=== PATIENT | female | born 1950 | race Caucasian/White ===

== ENCOUNTER 2018-06-07 16:13 | Emergency (ER) | payer OTHER ==
[2018-06-07 16:22] VITALS: BP 149/86; PULSE 73; TEMP 98.4; BMI 19.2
[2018-06-07] MEDS ORDERED: ONDANSETRON *ODT* 4 MG TABLET SL ONE (16:53)
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
[2018-06-07] MEDS ORDERED: ONDANSETRON *ODT* 4 MG TABLET ONE (17:04)
== END 2018-06-07 17:07 | disposition home or self-care (01) ==
LOC: FER 16:13
DX: Z13.9 Encounter for screening, unspecified (principal); I10 Essential (primary) hypertension; F17.210 Nicotine dependence, cigarettes, uncomplicated; Z86.73 Personal history of transient ischemic attack (TIA), and cerebral infarction without residual deficits; E06.3 Autoimmune thyroiditis; E78.00 Pure hypercholesterolemia, unspecified
CPT/HCPCS: 99281-25; Q0162

== ENCOUNTER 2021-09-30 14:33 | Emergency (ER) | payer OTHER ==
[2021-09-30 14:57] VITALS: TEMP 98.2; BMI 20.6
[2021-09-30] MEDS ORDERED: DEXAMETHASONE SOD PHOSPHATE 4 MG/1 ML VIAL IVPUSH ONE (16:21)
[2021-09-30] MEDS ORDERED: DEXAMETHASONE SOD PHOSPHATE 10 MG/1 ML VIAL ONE (16:58)
[2021-09-30] MEDS ORDERED: LISINOPRIL 10 MG TABLET PO ONE (17:09)
[2021-09-30] MEDS ORDERED: LISINOPRIL 5 MG TABLET ONE (17:52)
[2021-09-30 18:03] LABS: BASO % 0.4 % (0-2.0); HEMOGLOBIN 12.7 GM/dL (10.7-15.3); LYMPH % 7.9 % (8-40); MCH 32.1 pg (25.7-33.7); MCHC 33.5 g/dl (32.0-36.0); MEAN CELL VOLUME 95.6 fl (80-96); MEAN PLT VOLUME 8.6 fl (7.5-11.1); MONO % 13.4 % (3.8-10.2); NEUT % 78.3 % (42.8-82.8); PLATELET COUNT 238 10^3/uL (134-434); RBC 3.97 M/mm3 (3.60-5.2); RDW 13.5 % (11.6-15.6); WHITE BLOOD COUNT 10.3 K/mm3 (4.0-10.0)
[2021-09-30] MEDS ORDERED: AZITHROMYCIN 500 MG TABLET PO ONE (18:03)
[2021-09-30] MEDS ORDERED: CEFTRIAXONE 1,000 MG in DEXTROSE 5%-WATER - 50 ML IVPB ONE (18:03)
[2021-09-30 18:11] LABS: VENOUS O2 SATURATION 95.4 % (70-80); VENOUS PCO2 44.8 mmHg (38-52); VENOUS PH 7.401 (7.310-7.410)
[2021-09-30 18:12] LABS: INR 0.99 (0.83-1.09); PROTHROMBIN TIME (PATIENT) 11.6 SEC (9.7-13.0)
[2021-09-30 18:34] LABS: ALBUMIN 2.3 g/dl (3.4-5.0)
[2021-09-30 18:37] LABS: CREATININE 0.8 mg/dL (0.55-1.3)
[2021-09-30 18:38] LABS: BILIRUBIN,TOTAL 0.3 mg/dL (0.2-1); TOT PROT 5.9 g/dl (6.4-8.2)
[2021-09-30] MEDS ORDERED: CEFTRIAXONE 1 GM/50 ML BAG ONE (18:49)
[2021-09-30] MEDS ORDERED: AZITHROMYCIN 250 MG TABLET ONE (18:49)
[2021-09-30 19:00] VITALS: BP 143/75; PULSE 83
== END 2021-09-30 19:06 | disposition left against medical advice (07) ==
LOC: JER 14:33
PROC: 3E03329 Introduction of Other Anti-infective into Peripheral Vein, Percutaneous Approach (ICD-10-PCS; principal; 2021-09-30)
PROC: 3E033GC Introduction of Other Therapeutic Substance into Peripheral Vein, Percutaneous Approach (ICD-10-PCS; 2021-09-30)
DX: R09.02 Hypoxemia (principal); J12.82 Pneumonia due to coronavirus disease 2019
CPT/HCPCS: 36415; 71045-TC-FY; 80053; 82550; 82553; 82803; 84484; 85025; 85610; 85730; 87804; 93005; 93010; 99285-25; C9803; U0003; U0005

== ENCOUNTER 2021-10-02 11:29 | Inpatient (IN) | payer OTHER ==
[2021-10-02] MEDS ORDERED: SODIUM CHLORIDE 0.9% 500 ML INFUS.BAG IV ONE (12:40)
[2021-10-02] MEDS ORDERED: DEXAMETHASONE SOD PHOSPHATE 10 MG/1 ML VIAL IVPUSH ONE (12:40)
[2021-10-02] MEDS ORDERED: ACETAMINOPHEN 1000 MG/100 ML VIAL IVPB ONE (12:46)
[2021-10-02] MEDS ORDERED: CEFTRIAXONE 1 GM in DEXTROSE 5%-WATER - 50 ML IVPB ONE (12:50)
[2021-10-02] MEDS ORDERED: AZITHROMYCIN IVPB 500 MG in DEXTROSE 5%-WATER - 250 ML IVPB ONE (12:50)
[2021-10-02] MEDS ORDERED: DEXAMETHASONE SOD PHOSPHATE 10 MG/1 ML VIAL ONE (13:03)
[2021-10-02] MEDS ORDERED: ACETAMINOPHEN INJECTION 100 ML IVPB ONE (13:03)
[2021-10-02] MEDS ORDERED: AZITHROMYCIN IVPB 500 MG/250 ML BAG IVPB ONE (13:03)
[2021-10-02] MEDS ORDERED: CEFTRIAXONE 1 GM/50 ML BAG ONE (13:03)
[2021-10-02 13:30] LABS: BASO % 0.4 % (0-2.0); HEMATOCRIT 40.7 % (32.4-45.2); HEMOGLOBIN 13.5 GM/dL (10.7-15.3); LYMPH % 5.5 % (8-40); MCH 31.4 pg (25.7-33.7); MCHC 33.1 g/dl (32.0-36.0); MONO % 11.7 % (3.8-10.2); NEUT % 82.4 % (42.8-82.8); PLATELET COUNT 390 10^3/uL (134-434); RBC 4.29 M/mm3 (3.60-5.2); RDW 13.4 % (11.6-15.6); WHITE BLOOD COUNT 13.7 K/mm3 (4.0-10.0)
[2021-10-02 13:31] LABS: VENOUS BASE EXCESS 5.8 mmol/L (-2-2); VENOUS PCO2 53.7 mmHg (38-52); VENOUS PH 7.396 (7.310-7.410)
[2021-10-02 13:38] LABS: INR 1.03 (0.83-1.09); PROTHROMBIN TIME (PATIENT) 12.1 SEC (9.7-13.0)
[2021-10-02 13:41] LABS: ACTIVATED PTT 25.4 SECONDS (25.2-36.5)
[2021-10-02 13:54] LABS: BLOOD UREA NITROGEN 21.8 mg/dL (7-18)
[2021-10-02 13:55] LABS: CALCIUM 8.9 mg/dL (8.5-10.1)
[2021-10-02 13:56] LABS: ALBUMIN 2.5 g/dl (3.4-5.0)
[2021-10-02 13:58] LABS: BILIRUBIN,DIRECT 0.1 mg/dL (0.0-0.2)
[2021-10-02 13:59] LABS: BILIRUBIN,TOTAL 0.4 mg/dL (0.2-1)
[2021-10-02 14:02] LABS: TOT PROT 6.4 g/dl (6.4-8.2)
[2021-10-02 15:49] LABS: EPI CELLS 17 /uL (0-25.1); HYALINE CASTS 7 /uL (0-3.1); URINE APPEARANCE CLEAR; URINE BACTERIA 7 /uL (0-1359); URINE BILIRUBIN NEGATIVE (NEGATIVE); URINE COLOR YELLOW; URINE GLUCOSE (UA) NEGATIVE (NEGATIVE); URINE KETONE NEGATIVE (NEGATIVE); URINE LEUK ESTERASE NEGATIVE (NEGATIVE); URINE NITRITE NEGATIVE (NEGATIVE); URINE PROTEIN 2+ (NEGATIVE); URINE RBC 106 /uL (0-23.9); URINE UROBILINOGEN 0.2 mg/dL (0.2-1.0); URINE WBC 15 /uL (0-25.8)
[2021-10-02] MEDS: BUDESONIDE/FORMETEROL FUMARATE 80/4.5 mcg INHALER IH SCH (22:25)
[2021-10-03] MEDS ORDERED: DEXTROSE 5%-WATER - 50 ML IVPB ONE (08:50)
[2021-10-03] MEDS ORDERED: cefTRIAXone SODIUM 1 GM VIAL ONE (08:50)
[2021-10-03] MEDS: ALBUTEROL SO4 HFA INHALER IH PRN (09:01)
[2021-10-03] MEDS: CEFTRIAXONE 1 GM in DEXTROSE 5%-WATER - 50 ML IVPB SCH (09:01)
[2021-10-03] MEDS: AZITHROMYCIN IVPB 500 MG/250 ML BAG IVPB SCH (09:01)
[2021-10-03] MEDS: LISINOPRIL 20 MG TABLET PO SCH (09:01)
[2021-10-03] MEDS: BUDESONIDE/FORMETEROL FUMARATE 80/4.5 mcg INHALER IH SCH ×2 (09:02→21:56)
[2021-10-03] MEDS: guaiFENesin 200 MG/10 ML 10 ML UNIT-DOSE CUPS PO PRN (09:02)
[2021-10-03] MEDS: amLODIPine BESYLATE 5 MG TABLET (FP) PO SCH (09:02)
[2021-10-03] MEDS: DEXAMETHASONE SOD PHOSPHATE 10 MG/1 ML VIAL IVPUSH SCH (09:02)
[2021-10-03] MEDS: FAMOTIDINE 20 MG TABLET PO SCH (09:02)
[2021-10-03] MEDS: ENOXAPARIN NA (PORCINE) 40 MG/0.4 ML DISP.SYRIN SQ SCH (09:02)
[2021-10-03] MEDS: CHOLECALCIFEROL (VIT D3) 1,000 UNIT (25 MCG) TABLET PO ONE (11:31)
[2021-10-03] MEDS: ZINC SULFATE 220 MG CAPSULE (FP) PO SCH (11:31)
[2021-10-03] MEDS: ASCORBIC ACID 500 MG TABLET (FP) PO SCH ×2 (11:31→21:57)
[2021-10-03] MEDS: ALPRAZolam 1 MG TABLET PO PRN (15:04)
[2021-10-03 17:38] LABS: HEMATOCRIT 39.3 % (32.4-45.2); MCH 31.7 pg (25.7-33.7); MCHC 33.1 g/dl (32.0-36.0); MEAN CELL VOLUME 95.6 fl (80-96); PLATELET COUNT 378 10^3/uL (134-434); RBC 4.11 M/mm3 (3.60-5.2); RDW 13.7 % (11.6-15.6); WHITE BLOOD COUNT 12.8 K/mm3 (4.0-10.0)
[2021-10-03 17:58] LABS: CALCIUM 8.2 mg/dL (8.5-10.1)
[2021-10-03 17:59] LABS: BLOOD UREA NITROGEN 19.3 mg/dL (7-18)
[2021-10-03 18:02] LABS: CREATININE 0.8 mg/dL (0.55-1.3)
[2021-10-03 18:03] LABS: BILIRUBIN,TOTAL 0.2 mg/dL (0.2-1); TOT PROT 5.5 g/dl (6.4-8.2)
[2021-10-03 19:28] LABS: EPI CELLS 6 /uL (0-25.1); HYALINE CASTS 1 /uL (0-3.1); URINE APPEARANCE CLEAR; URINE BACTERIA 6 /uL (0-1359); URINE BILIRUBIN NEGATIVE (NEGATIVE); URINE COLOR YELLOW; URINE GLUCOSE (UA) NEGATIVE (NEGATIVE); URINE KETONE NEGATIVE (NEGATIVE); URINE LEUK ESTERASE NEGATIVE (NEGATIVE); URINE NITRITE NEGATIVE (NEGATIVE); URINE PROTEIN 1+ (NEGATIVE); URINE RBC 35 /uL (0-23.9); URINE UROBILINOGEN 0.2 mg/dL (0.2-1.0); URINE WBC 7 /uL (0-25.8)
[2021-10-03] MEDS: ACETAMINOPHEN 325 MG TABLET (FP) PO PRN (21:56)
[2021-10-04] MEDS: ACETAMINOPHEN 325 MG TABLET (FP) PO PRN ×2 (06:30→20:41)
[2021-10-04 09:34] LABS: HEMATOCRIT 39.8 % (32.4-45.2); HEMOGLOBIN 13.4 GM/dL (10.7-15.3); MCH 32.4 pg (25.7-33.7); MCHC 33.6 g/dl (32.0-36.0); MEAN CELL VOLUME 96.5 fl (80-96); MEAN PLT VOLUME 8.5 fl (7.5-11.1); PLATELET COUNT 391 10^3/uL (134-434); RBC 4.13 M/mm3 (3.60-5.2); RDW 13.3 % (11.6-15.6); WHITE BLOOD COUNT 14.6 K/mm3 (4.0-10.0)
[2021-10-04] MEDS ORDERED: cefTRIAXone SODIUM 1 GM VIAL ONE (09:52)
[2021-10-04] MEDS ORDERED: DEXTROSE 5%-WATER - 50 ML IVPB ONE (09:52)
[2021-10-04] MEDS: CEFTRIAXONE 1 GM in DEXTROSE 5%-WATER - 50 ML IVPB SCH (09:53)
[2021-10-04] MEDS: ENOXAPARIN NA (PORCINE) 40 MG/0.4 ML DISP.SYRIN SQ SCH (09:54)
[2021-10-04] MEDS: amLODIPine BESYLATE 5 MG TABLET (FP) PO SCH (09:55)
[2021-10-04] MEDS: DEXAMETHASONE SOD PHOSPHATE 10 MG/1 ML VIAL IVPUSH SCH (09:56)
[2021-10-04] MEDS: LISINOPRIL 20 MG TABLET PO SCH (09:56)
[2021-10-04] MEDS: CHOLECALCIFEROL (VIT D3) 1,000 UNIT (25 MCG) TABLET PO SCH (09:56)
[2021-10-04] MEDS: ASCORBIC ACID 500 MG TABLET (FP) PO SCH ×2 (09:56→21:52)
[2021-10-04] MEDS: ZINC SULFATE 220 MG CAPSULE (FP) PO SCH (09:56)
[2021-10-04] MEDS: BUDESONIDE/FORMETEROL FUMARATE 80/4.5 mcg INHALER IH SCH ×2 (09:56→21:52)
[2021-10-04] MEDS: FAMOTIDINE 20 MG TABLET PO SCH (09:56)
[2021-10-04 10:20] LABS: ALBUMIN 1.8 g/dl (3.4-5.0)
[2021-10-04 10:21] LABS: BLOOD UREA NITROGEN 20.9 mg/dL (7-18)
[2021-10-04 10:22] LABS: CALCIUM 8.1 mg/dL (8.5-10.1)
[2021-10-04 10:23] LABS: CREATININE 0.8 mg/dL (0.55-1.3); PHOSPHOROUS 2.9 mg/dL (2.5-4.9)
[2021-10-04 10:24] LABS: BILIRUBIN,TOTAL 0.4 mg/dL (0.2-1); TOT PROT 5.2 g/dl (6.4-8.2)
[2021-10-04] MEDS: AZITHROMYCIN IVPB 500 MG/250 ML BAG IVPB SCH (10:47)
[2021-10-04] MEDS: ALPRAZolam 1 MG TABLET PO PRN (20:41)
[2021-10-05] MEDS ORDERED: amLODIPine BESYLATE 5 MG TABLET (FP) PO ONE (06:04)
[2021-10-05 10:22] LABS: RBC 4.34 M/mm3 (3.60-5.2); WHITE BLOOD COUNT 17.8 K/mm3 (4.0-10.0)
[2021-10-05 10:23] LABS: MCH 32.2 pg (25.7-33.7); MCHC 33.2 g/dl (32.0-36.0); MEAN CELL VOLUME 96.9 fl (80-96); MEAN PLT VOLUME 8.5 fl (7.5-11.1); PLATELET COUNT 311 10^3/uL (134-434); RDW 13.6 % (11.6-15.6)
[2021-10-05 10:43] LABS: ALBUMIN 1.8 g/dl (3.4-5.0); CALCIUM 8.2 mg/dL (8.5-10.1)
[2021-10-05 10:44] LABS: MAGNESIUM 2.1 mg/dL (1.8-2.4)
[2021-10-05 10:46] LABS: CREATININE 0.7 mg/dL (0.55-1.3); PHOSPHOROUS 2.5 mg/dL (2.5-4.9)
[2021-10-05 10:48] LABS: BILIRUBIN,TOTAL 0.3 mg/dL (0.2-1); TOT PROT 5.4 g/dl (6.4-8.2)
[2021-10-05] MEDS ORDERED: cefTRIAXone SODIUM 1 GM VIAL ONE (10:54)
[2021-10-05] MEDS ORDERED: DEXTROSE 5%-WATER - 50 ML IVPB ONE (10:55)
[2021-10-05] MEDS: FAMOTIDINE 20 MG TABLET PO SCH (10:58)
[2021-10-05] MEDS: ASCORBIC ACID 500 MG TABLET (FP) PO SCH ×2 (10:58→22:40)
[2021-10-05] MEDS: ENOXAPARIN NA (PORCINE) 40 MG/0.4 ML DISP.SYRIN SQ SCH (10:58)
[2021-10-05] MEDS: LISINOPRIL 20 MG TABLET PO SCH (10:58)
[2021-10-05] MEDS: CHOLECALCIFEROL (VIT D3) 1,000 UNIT (25 MCG) TABLET PO SCH (10:58)
[2021-10-05] MEDS: CEFTRIAXONE 1 GM in DEXTROSE 5%-WATER - 50 ML IVPB SCH (10:58)
[2021-10-05] MEDS: ZINC SULFATE 220 MG CAPSULE (FP) PO SCH (10:58)
[2021-10-05] MEDS: DEXAMETHASONE SOD PHOSPHATE 10 MG/1 ML VIAL IVPUSH SCH (10:58)
[2021-10-05] MEDS: amLODIPine BESYLATE 5 MG TABLET (FP) PO SCH (10:58)
[2021-10-05] MEDS: BUDESONIDE/FORMETEROL FUMARATE 80/4.5 mcg INHALER IH SCH ×2 (10:59→22:40)
[2021-10-05] MEDS: AZITHROMYCIN IVPB 500 MG/250 ML BAG IVPB SCH (11:40)
[2021-10-05] MEDS: ACETAMINOPHEN 325 MG TABLET (FP) PO PRN (11:47)
[2021-10-06 09:13] LABS: HEMATOCRIT 36.5 % (32.4-45.2); HEMOGLOBIN 12.3 GM/dL (10.7-15.3); MCH 31.9 pg (25.7-33.7); MCHC 33.8 g/dl (32.0-36.0); MEAN CELL VOLUME 94.2 fl (80-96); MEAN PLT VOLUME 8.1 fl (7.5-11.1); PLATELET COUNT 354 10^3/uL (134-434); RBC 3.87 M/mm3 (3.60-5.2); RDW 13.3 % (11.6-15.6); WHITE BLOOD COUNT 17.4 K/mm3 (4.0-10.0)
[2021-10-06 09:24] LABS: INR 0.92 (0.83-1.09); PROTHROMBIN TIME (PATIENT) 10.8 SEC (9.7-13.0)
[2021-10-06 09:32] LABS: BLOOD UREA NITROGEN 24.3 mg/dL (7-18); CALCIUM 8.3 mg/dL (8.5-10.1)
[2021-10-06 09:33] LABS: ALBUMIN 1.5 g/dl (3.4-5.0); MAGNESIUM 2.2 mg/dL (1.8-2.4)
[2021-10-06 09:36] LABS: CREATININE 0.6 mg/dL (0.55-1.3)
[2021-10-06 09:37] LABS: BILIRUBIN,TOTAL 0.4 mg/dL (0.2-1); TOT PROT 4.8 g/dl (6.4-8.2)
[2021-10-06] MEDS ORDERED: cefTRIAXone SODIUM 1 GM VIAL ONE (09:37)
[2021-10-06] MEDS ORDERED: DEXTROSE 5%-WATER - 50 ML IVPB ONE (09:38)
[2021-10-06] MEDS: FAMOTIDINE 20 MG TABLET PO SCH (10:23)
[2021-10-06] MEDS: DEXAMETHASONE SOD PHOSPHATE 10 MG/1 ML VIAL IVPUSH SCH (10:23)
[2021-10-06] MEDS: LISINOPRIL 20 MG TABLET PO SCH (10:23)
[2021-10-06] MEDS: ZINC SULFATE 220 MG CAPSULE (FP) PO SCH (10:23)
[2021-10-06] MEDS: ASCORBIC ACID 500 MG TABLET (FP) PO SCH ×2 (10:23→21:51)
[2021-10-06] MEDS: CHOLECALCIFEROL (VIT D3) 1,000 UNIT (25 MCG) TABLET PO SCH (10:23)
[2021-10-06] MEDS: amLODIPine BESYLATE 5 MG TABLET (FP) PO SCH (10:24)
[2021-10-06] MEDS: CEFTRIAXONE 1 GM in DEXTROSE 5%-WATER - 50 ML IVPB SCH (10:24)
[2021-10-06] MEDS: ENOXAPARIN NA (PORCINE) 40 MG/0.4 ML DISP.SYRIN SQ SCH (10:24)
[2021-10-06] MEDS: BUDESONIDE/FORMETEROL FUMARATE 80/4.5 mcg INHALER IH SCH ×2 (10:49→21:51)
[2021-10-07] MEDS ORDERED: PT OWN MED DRAWER 7, Y5N ONE ×2 (10:18→19:16)
[2021-10-07] MEDS ORDERED: cefTRIAXone SODIUM 1 GM VIAL ONE (10:19)
[2021-10-07] MEDS ORDERED: DEXTROSE 5%-WATER - 50 ML IVPB ONE (10:19)
[2021-10-07] MEDS: CEFTRIAXONE 1 GM in DEXTROSE 5%-WATER - 50 ML IVPB SCH (10:21)
[2021-10-07] MEDS: ZINC SULFATE 220 MG CAPSULE (FP) PO SCH (10:22)
[2021-10-07] MEDS: FAMOTIDINE 20 MG TABLET PO SCH (10:22)
[2021-10-07] MEDS: ENOXAPARIN NA (PORCINE) 40 MG/0.4 ML DISP.SYRIN SQ SCH (10:22)
[2021-10-07] MEDS: ASCORBIC ACID 500 MG TABLET (FP) PO SCH ×2 (10:22→21:41)
[2021-10-07] MEDS: DEXAMETHASONE SOD PHOSPHATE 10 MG/1 ML VIAL IVPUSH SCH (10:22)
[2021-10-07] MEDS: LISINOPRIL 20 MG TABLET PO SCH (10:22)
[2021-10-07] MEDS: amLODIPine BESYLATE 5 MG TABLET (FP) PO SCH (10:22)
[2021-10-07] MEDS: CHOLECALCIFEROL (VIT D3) 1,000 UNIT (25 MCG) TABLET PO SCH (10:22)
[2021-10-07] MEDS: BUDESONIDE/FORMETEROL FUMARATE 80/4.5 mcg INHALER IH SCH ×2 (10:23→21:41)
[2021-10-07 10:59] LABS: HEMATOCRIT 35.8 % (32.4-45.2); MCHC 33.5 g/dl (32.0-36.0); MEAN CELL VOLUME 95.7 fl (80-96); MEAN PLT VOLUME 8.5 fl (7.5-11.1); PLATELET COUNT 365 10^3/uL (134-434); RBC 3.74 M/mm3 (3.60-5.2); RDW 13.3 % (11.6-15.6); WHITE BLOOD COUNT 15.1 K/mm3 (4.0-10.0)
[2021-10-07 11:35] LABS: CALCIUM 8.2 mg/dL (8.5-10.1)
[2021-10-07 11:36] LABS: BLOOD UREA NITROGEN 23.5 mg/dL (7-18); MAGNESIUM 2.4 mg/dL (1.8-2.4)
[2021-10-07 11:39] LABS: CREATININE 0.6 mg/dL (0.55-1.3); PHOSPHOROUS 3.9 mg/dL (2.5-4.9)
[2021-10-07] MEDS ORDERED: TOCILIZUMAB (ACTEMRA) 200 MG/10 ML VIAL IVPB ONE (15:54)
[2021-10-07] MEDS ORDERED: TOCILIZUMAB IVPB ONE (16:15)
[2021-10-07] MEDS ORDERED: SODIUM CHLORIDE IVPB ONE (16:15)
[2021-10-08 09:17] LABS: HEMOGLOBIN 14.3 GM/dL (10.7-15.3); MCH 32.5 pg (25.7-33.7); MEAN CELL VOLUME 95.7 fl (80-96); MEAN PLT VOLUME 8.3 fl (7.5-11.1); PLATELET COUNT 505 10^3/uL (134-434); RBC 4.39 M/mm3 (3.60-5.2); RDW 13.1 % (11.6-15.6)
[2021-10-08] MEDS ORDERED: DEXTROSE 5%-WATER - 50 ML IVPB ONE (10:08)
[2021-10-08] MEDS ORDERED: cefTRIAXone SODIUM 1 GM VIAL ONE (10:08)
[2021-10-08 10:09] LABS: CALCIUM 9.1 mg/dL (8.5-10.1)
[2021-10-08 10:11] LABS: MAGNESIUM 2.4 mg/dL (1.8-2.4)
[2021-10-08 10:12] LABS: CREATININE 0.7 mg/dL (0.55-1.3); PHOSPHOROUS 3.3 mg/dL (2.5-4.9)
[2021-10-08] MEDS: ALPRAZolam 1 MG TABLET PO PRN (10:16)
[2021-10-08] MEDS: FAMOTIDINE 20 MG TABLET PO SCH (10:17)
[2021-10-08] MEDS: ASCORBIC ACID 500 MG TABLET (FP) PO SCH ×2 (10:17→21:34)
[2021-10-08] MEDS: LISINOPRIL 20 MG TABLET PO SCH (10:17)
[2021-10-08] MEDS: DEXAMETHASONE SOD PHOSPHATE 10 MG/1 ML VIAL IVPUSH SCH (10:17)
[2021-10-08] MEDS: ENOXAPARIN NA (PORCINE) 40 MG/0.4 ML DISP.SYRIN SQ SCH (10:17)
[2021-10-08] MEDS: amLODIPine BESYLATE 5 MG TABLET (FP) PO SCH (10:17)
[2021-10-08] MEDS: ZINC SULFATE 220 MG CAPSULE (FP) PO SCH (10:17)
[2021-10-08] MEDS: SODIUM CHLORIDE NASAL SPRAY 44 ML BOTTLE NS PRN (10:19)
[2021-10-08] MEDS: CEFTRIAXONE 1 GM in DEXTROSE 5%-WATER - 50 ML IVPB SCH (10:19)
[2021-10-08] MEDS: BUDESONIDE/FORMETEROL FUMARATE 80/4.5 mcg INHALER IH SCH ×2 (10:19→21:37)
[2021-10-08] MEDS: CHOLECALCIFEROL (VIT D3) 1,000 UNIT (25 MCG) TABLET PO SCH (10:19)
[2021-10-08 10:20] LABS: BLOOD UREA NITROGEN 20.3 mg/dL (7-18)
[2021-10-08] MEDS: ALBUTEROL SO4 HFA INHALER IH PRN (10:20)
[2021-10-08 14:09] VITALS: BMI 19.9
[2021-10-08] MEDS: ALBUTEROL SO4 HFA INHALER IH SCH ×2 (16:45→21:35)
[2021-10-08] MEDS: ALPRAZolam 0.25 MG TABLET PO PRN (21:34)
[2021-10-09 08:29] LABS: HEMATOCRIT 37.5 % (32.4-45.2); HEMOGLOBIN 12.4 GM/dL (10.7-15.3); MCH 31.8 pg (25.7-33.7); MCHC 33.2 g/dl (32.0-36.0); MEAN CELL VOLUME 95.9 fl (80-96); PLATELET COUNT 408 10^3/uL (134-434); RBC 3.91 M/mm3 (3.60-5.2); RDW 13.2 % (11.6-15.6); WHITE BLOOD COUNT 15.5 K/mm3 (4.0-10.0)
[2021-10-09 08:54] LABS: BLOOD UREA NITROGEN 23.9 mg/dL (7-18); CALCIUM 8.5 mg/dL (8.5-10.1); MAGNESIUM 2.5 mg/dL (1.8-2.4)
[2021-10-09 08:56] LABS: CREATININE 0.6 mg/dL (0.55-1.3); PHOSPHOROUS 3.3 mg/dL (2.5-4.9)
[2021-10-09] MEDS ORDERED: PT OWN MED DRAWER 7, Y5N ONE (10:06)
[2021-10-09] MEDS: ALBUTEROL SO4 HFA INHALER IH SCH ×4 (10:12→21:00)
[2021-10-09] MEDS: FAMOTIDINE 20 MG TABLET PO SCH (10:12)
[2021-10-09] MEDS: DEXAMETHASONE SOD PHOSPHATE 10 MG/1 ML VIAL IVPUSH SCH (10:12)
[2021-10-09] MEDS: ASCORBIC ACID 500 MG TABLET (FP) PO SCH ×2 (10:12→21:39)
[2021-10-09] MEDS: ENOXAPARIN NA (PORCINE) 40 MG/0.4 ML DISP.SYRIN SQ SCH (10:12)
[2021-10-09] MEDS: ZINC SULFATE 220 MG CAPSULE (FP) PO SCH (10:12)
[2021-10-09] MEDS: CHOLECALCIFEROL (VIT D3) 1,000 UNIT (25 MCG) TABLET PO SCH (10:12)
[2021-10-09] MEDS: LISINOPRIL 20 MG TABLET PO SCH (10:12)
[2021-10-09] MEDS: amLODIPine BESYLATE 5 MG TABLET (FP) PO SCH (10:12)
[2021-10-09] MEDS: BUDESONIDE/FORMETEROL FUMARATE 80/4.5 mcg INHALER IH SCH ×2 (10:13→21:39)
[2021-10-10 07:49] LABS: HEMATOCRIT 34.3 % (32.4-45.2); HEMOGLOBIN 11.6 GM/dL (10.7-15.3); MCH 32.3 pg (25.7-33.7); MCHC 33.9 g/dl (32.0-36.0); MEAN CELL VOLUME 95.5 fl (80-96); PLATELET COUNT 417 10^3/uL (134-434); RBC 3.59 M/mm3 (3.60-5.2); RDW 13.2 % (11.6-15.6); WHITE BLOOD COUNT 14.6 K/mm3 (4.0-10.0)
[2021-10-10 08:10] LABS: CALCIUM 8.5 mg/dL (8.5-10.1)
[2021-10-10 08:11] LABS: MAGNESIUM 2.3 mg/dL (1.8-2.4)
[2021-10-10 08:14] LABS: CREATININE 0.5 mg/dL (0.55-1.3)
[2021-10-10] MEDS: ALBUTEROL SO4 HFA INHALER IH SCH ×4 (08:58→21:00)
[2021-10-10] MEDS ORDERED: PT OWN MED DRAWER 7, Y5N ONE (09:36)
[2021-10-10] MEDS: FAMOTIDINE 20 MG TABLET PO SCH (09:45)
[2021-10-10] MEDS: CHOLECALCIFEROL (VIT D3) 1,000 UNIT (25 MCG) TABLET PO SCH (09:45)
[2021-10-10] MEDS: LISINOPRIL 20 MG TABLET PO SCH (09:45)
[2021-10-10] MEDS: ZINC SULFATE 220 MG CAPSULE (FP) PO SCH (09:45)
[2021-10-10] MEDS: SODIUM CHLORIDE NASAL SPRAY 44 ML BOTTLE NS PRN (09:45)
[2021-10-10] MEDS: amLODIPine BESYLATE 5 MG TABLET (FP) PO SCH (09:45)
[2021-10-10] MEDS: DEXAMETHASONE SOD PHOSPHATE 10 MG/1 ML VIAL IVPUSH SCH (09:45)
[2021-10-10] MEDS: BUDESONIDE/FORMETEROL FUMARATE 80/4.5 mcg INHALER IH SCH ×2 (09:45→21:59)
[2021-10-10] MEDS: ASCORBIC ACID 500 MG TABLET (FP) PO SCH ×2 (09:45→21:58)
[2021-10-10] MEDS: ENOXAPARIN NA (PORCINE) 40 MG/0.4 ML DISP.SYRIN SQ SCH (09:45)
[2021-10-11] MEDS: ALBUTEROL SO4 HFA INHALER IH SCH ×4 (08:29→20:07)
[2021-10-11 08:31] LABS: HEMATOCRIT 33.9 % (32.4-45.2); HEMOGLOBIN 11.2 GM/dL (10.7-15.3); MCH 31.4 pg (25.7-33.7); MEAN CELL VOLUME 95.2 fl (80-96); MEAN PLT VOLUME 7.5 fl (7.5-11.1); PLATELET COUNT 403 10^3/uL (134-434); RBC 3.56 M/mm3 (3.60-5.2); RDW 13.1 % (11.6-15.6); WHITE BLOOD COUNT 13.9 K/mm3 (4.0-10.0)
[2021-10-11 08:44] LABS: BLOOD UREA NITROGEN 20.3 mg/dL (7-18); CALCIUM 8.3 mg/dL (8.5-10.1); MAGNESIUM 2.2 mg/dL (1.8-2.4)
[2021-10-11 08:47] LABS: CREATININE 0.6 mg/dL (0.55-1.3); PHOSPHOROUS 3.3 mg/dL (2.5-4.9)
[2021-10-11] MEDS ORDERED: PT OWN MED DRAWER 7, Y5N ONE (10:36)
[2021-10-11] MEDS: DEXAMETHASONE SOD PHOSPHATE 10 MG/1 ML VIAL IVPUSH SCH (11:38)
[2021-10-11] MEDS: ASCORBIC ACID 500 MG TABLET (FP) PO SCH ×2 (11:38→21:03)
[2021-10-11] MEDS: ENOXAPARIN NA (PORCINE) 40 MG/0.4 ML DISP.SYRIN SQ SCH (11:38)
[2021-10-11] MEDS: CHOLECALCIFEROL (VIT D3) 1,000 UNIT (25 MCG) TABLET PO SCH (11:38)
[2021-10-11] MEDS: ZINC SULFATE 220 MG CAPSULE (FP) PO SCH (11:39)
[2021-10-11] MEDS: amLODIPine BESYLATE 5 MG TABLET (FP) PO SCH (11:39)
[2021-10-11] MEDS: BUDESONIDE/FORMETEROL FUMARATE 80/4.5 mcg INHALER IH SCH ×2 (11:39→21:03)
[2021-10-11] MEDS: LISINOPRIL 20 MG TABLET PO SCH (11:39)
[2021-10-11] MEDS: FAMOTIDINE 20 MG TABLET PO SCH (11:39)
[2021-10-11] MEDS: ALPRAZolam 0.25 MG TABLET PO PRN (15:49)
[2021-10-12] MEDS: FAMOTIDINE 20 MG TABLET PO SCH (09:26)
[2021-10-12] MEDS: amLODIPine BESYLATE 5 MG TABLET (FP) PO SCH (09:26)
[2021-10-12] MEDS: ALBUTEROL SO4 HFA INHALER IH SCH ×4 (09:26→21:20)
[2021-10-12] MEDS: DEXAMETHASONE SOD PHOSPHATE 10 MG/1 ML VIAL IVPUSH SCH (09:27)
[2021-10-12] MEDS: ENOXAPARIN NA (PORCINE) 40 MG/0.4 ML DISP.SYRIN SQ SCH (09:27)
[2021-10-12] MEDS: CHOLECALCIFEROL (VIT D3) 1,000 UNIT (25 MCG) TABLET PO SCH (09:27)
[2021-10-12] MEDS: ASCORBIC ACID 500 MG TABLET (FP) PO SCH ×2 (09:27→21:18)
[2021-10-12] MEDS: BUDESONIDE/FORMETEROL FUMARATE 80/4.5 mcg INHALER IH SCH ×2 (09:27→21:22)
[2021-10-12] MEDS: LISINOPRIL 20 MG TABLET PO SCH (09:27)
[2021-10-12] MEDS: ZINC SULFATE 220 MG CAPSULE (FP) PO SCH (09:27)
[2021-10-12 10:22] LABS: HEMATOCRIT 35.7 % (32.4-45.2); MCHC 33.7 g/dl (32.0-36.0); MEAN CELL VOLUME 95.1 fl (80-96); PLATELET COUNT 397 10^3/uL (134-434); RBC 3.76 M/mm3 (3.60-5.2); RDW 13.2 % (11.6-15.6); WHITE BLOOD COUNT 13.5 K/mm3 (4.0-10.0)
[2021-10-12 10:53] LABS: BLOOD UREA NITROGEN 22.6 mg/dL (7-18); CALCIUM 8.4 mg/dL (8.5-10.1); MAGNESIUM 2.4 mg/dL (1.8-2.4)
[2021-10-12 10:57] LABS: CREATININE 0.6 mg/dL (0.55-1.3); PHOSPHOROUS 3.6 mg/dL (2.5-4.9)
[2021-10-12] MEDS: guaiFENesin 200 MG/10 ML 10 ML UNIT-DOSE CUPS PO PRN (21:18)
[2021-10-13 09:32] LABS: HEMATOCRIT 39.3 % (32.4-45.2); HEMOGLOBIN 13.2 GM/dL (10.7-15.3); MCH 32.4 pg (25.7-33.7); MCHC 33.7 g/dl (32.0-36.0); MEAN CELL VOLUME 96.3 fl (80-96); MEAN PLT VOLUME 7.7 fl (7.5-11.1); PLATELET COUNT 455 10^3/uL (134-434); RBC 4.08 M/mm3 (3.60-5.2); RDW 13.1 % (11.6-15.6); WHITE BLOOD COUNT 15.7 K/mm3 (4.0-10.0)
[2021-10-13] MEDS: ASCORBIC ACID 500 MG TABLET (FP) PO SCH (09:55)
[2021-10-13] MEDS: LISINOPRIL 20 MG TABLET PO SCH (09:55)
[2021-10-13] MEDS: ALBUTEROL SO4 HFA INHALER IH SCH ×3 (09:55→17:04)
[2021-10-13] MEDS: CHOLECALCIFEROL (VIT D3) 1,000 UNIT (25 MCG) TABLET PO SCH (09:55)
[2021-10-13] MEDS: FAMOTIDINE 20 MG TABLET PO SCH (09:55)
[2021-10-13] MEDS: ENOXAPARIN NA (PORCINE) 40 MG/0.4 ML DISP.SYRIN SQ SCH (09:55)
[2021-10-13] MEDS: amLODIPine BESYLATE 5 MG TABLET (FP) PO SCH (09:55)
[2021-10-13] MEDS: ZINC SULFATE 220 MG CAPSULE (FP) PO SCH (09:55)
[2021-10-13] MEDS: DEXAMETHASONE SOD PHOSPHATE 10 MG/1 ML VIAL IVPUSH SCH (09:56)
[2021-10-13] MEDS: BUDESONIDE/FORMETEROL FUMARATE 80/4.5 mcg INHALER IH SCH (09:56)
[2021-10-13 10:37] LABS: BLOOD UREA NITROGEN 20.4 mg/dL (7-18); CALCIUM 8.8 mg/dL (8.5-10.1)
[2021-10-13 10:40] LABS: CREATININE 0.6 mg/dL (0.55-1.3)
[2021-10-13 14:48] VITALS: BP 128/69; PULSE 71; TEMP 98.6
== END 2021-10-13 18:38 | disposition home or self-care (01) | DRG 177 ==
LOC: JER 11:29 → JERBED 12:46 → J8W 18:26
PROVIDERS: ADMIT Internal Medicine; ATTEND Internal Medicine
DX: U07.1 COVID-19 (principal); J96.01 Acute respiratory failure with hypoxia; J12.82 Pneumonia due to coronavirus disease 2019; R07.89 Other chest pain; R53.83 Other fatigue; I70.1 Atherosclerosis of renal artery; I10 Essential (primary) hypertension; R74.01 Elevation of levels of liver transaminase levels
CPT/HCPCS: 36415; 71045-TC-FY; 76775-TC; 80048; 80053; 81003; 82248; 82550; 82553; 82570; 82728; 82803; 83605; 83615; 83735; 84100; 84156; 84484; 85025; 85027; 85379; 85610; 85651; 85730; 86140; 86480; 86705; 86708; 86803; 87040; 87077; 87086; 87116; 87206; 87340; 87517; 93005; 93010; 94761; 99285-25; C9803; J0131; J1100; J3262; U0003; U0005

== ENCOUNTER 2023-05-28 22:43 | Emergency (ER) | payer OTHER ==
[2023-05-28 22:52] VITALS: PULSE 16; BMI 20.2
[2023-05-28 22:57] VITALS: BP 184/96; RESP 18; TEMP 99.7
[2023-05-29 00:39] LABS: HEMATOCRIT 44.3 % (32.4-45.2); HEMOGLOBIN 14.8 GM/dL (10.7-15.3); MCH 32.1 pg (25.7-33.7); MCHC 33.4 g/dl (32.0-36.0); MEAN CELL VOLUME 96.2 fl (80-96); MEAN PLT VOLUME 8.2 fl (7.5-11.1); PLATELET COUNT 408 10^3/uL (134-434); WHITE BLOOD COUNT 18.1 K/mm3 (4.0-10.0)
[2023-05-29 01:00] LABS: POTASSIUM 3.7 mmol/L (3.5-5.1)
[2023-05-29 01:02] LABS: ALBUMIN 3.5 g/dl (3.4-5.0)
[2023-05-29 01:03] LABS: BLOOD UREA NITROGEN 14.6 mg/dL (7-18)
[2023-05-29 01:05] LABS: CREATININE 0.7 mg/dL (0.55-1.3)
[2023-05-29 01:07] LABS: BILIRUBIN,TOTAL 0.3 mg/dL (0.2-1); TOT PROT 7.4 g/dl (6.4-8.2)
[2023-05-29] MEDS ORDERED: CEFTRIAXONE 1,000 MG in DEXTROSE 5%-WATER - 50 ML IVPB ONE (01:13)
[2023-05-29] MEDS ORDERED: cefTRIAXone SODIUM 1 GM VIAL ONE (01:15)
[2023-05-29] MEDS ORDERED: AZITHROMYCIN 250 MG TABLET PO STA (01:16)
[2023-05-29] MEDS ORDERED: levoFLOXacin 750 MG TABLET PO SCH (10:00)
== END 2023-05-29 01:39 | disposition home or self-care (01) ==
LOC: FER 22:43
PROC: 3E033GC Introduction of Other Therapeutic Substance into Peripheral Vein, Percutaneous Approach (ICD-10-PCS; principal; 2023-05-28)
DX: J18.9 Pneumonia, unspecified organism (principal)
CPT/HCPCS: 36415; 71045-TC-FY; 80053; 82550; 84484; 85027; 87040; 93005; 96365; 99285-25

== ENCOUNTER 2023-12-24 07:01 | Day surgery (SDC) | payer OTHER ==
[2023-12-15 16:01] VITALS: BMI 19.2
[2023-12-24] MEDS ORDERED: LIDOCAINE HCL/PF 2% SDV 5ML VIAL ONE (08:02)
[2023-12-24] MEDS ORDERED: PROPOFOL 160 ML ONE (08:02)
[2023-12-24 09:20] VITALS: BP 143/53; PULSE 84; RESP 18; TEMP 98
== END 2023-12-24 10:08 | disposition home or self-care (01) ==
LOC: FASU-ENDO 07:01
PROVIDERS: ATTEND Internal Medicine Gastroenterology
PROC: 0DBN8ZX Excision of Sigmoid Colon, Via Natural or Artificial Opening Endoscopic, Diagnostic (ICD-10-PCS; principal; 2023-12-24 08:30)
DX: Z12.11 Encounter for screening for malignant neoplasm of colon (principal); D12.7 Benign neoplasm of rectosigmoid junction; K63.5 Polyp of colon; R19.5 Other fecal abnormalities; K64.1 Second degree hemorrhoids; K57.30 Diverticulosis of large intestine without perforation or abscess without bleeding
CPT/HCPCS: 88305-TC

== ENCOUNTER 2024-04-13 15:25 | Emergency (ER) | payer OTHER ==
[2024-04-13 15:29] VITALS: RESP 18; TEMP 98.4; BMI 21.0
[2024-04-13 16:55] LABS: VENOUS BASE EXCESS 6.6 mmol/L (-2-2); VENOUS O2 SATURATION 50.2 % (70-80); VENOUS PH 7.365 (7.310-7.410)
[2024-04-13 16:58] LABS: EOS % 2.6 % (0-4.5); HEMATOCRIT 39.2 % (32.4-45.2); LYMPH % 19.9 % (8-40); MCH 31.8 pg (25.7-33.7); MCHC 33.2 g/dl (32.0-36.0); MEAN CELL VOLUME 95.9 fl (80-96); MEAN PLT VOLUME 7.3 fl (7.5-11.1); MONO % 9.1 % (3.8-10.2); NEUT % 67.4 % (42.8-82.8); PLATELET COUNT 355 10^3/uL (134-434); RBC 4.09 M/mm3 (3.60-5.2); RDW 14.5 % (11.6-15.6); WHITE BLOOD COUNT 10.8 K/mm3 (4.0-10.0)
[2024-04-13 17:05] LABS: INR 0.91 (0.83-1.09); PROTHROMBIN TIME (PATIENT) 10.3 SEC (9.7-13.0)
[2024-04-13 17:08] LABS: ACTIVATED PTT 31.3 SECONDS (25.2-36.5)
[2024-04-13 17:18] LABS: BLOOD UREA NITROGEN 16.8 mg/dL (7-18); CALCIUM 8.9 mg/dL (8.5-10.1)
[2024-04-13 17:19] LABS: ALBUMIN 3.2 g/dl (3.4-5.0)
[2024-04-13 17:21] LABS: CREATININE 0.8 mg/dL (0.55-1.3)
[2024-04-13 17:23] LABS: BILIRUBIN,TOTAL 0.2 mg/dL (0.2-1); TOT PROT 6.1 g/dl (6.4-8.2)
[2024-04-13 17:26] LABS: N-TERMINAL BNP 1761.1 pg/ml (5-125)
[2024-04-13 20:59] VITALS: BP 158/82; PULSE 78
== END 2024-04-13 21:07 | disposition left against medical advice (07) ==
LOC: JER 15:25
DX: I21.4 Non-ST elevation (NSTEMI) myocardial infarction (principal); I25.10 Atherosclerotic heart disease of native coronary artery without angina pectoris; I10 Essential (primary) hypertension; R91.8 Other nonspecific abnormal finding of lung field; R06.02 Shortness of breath; R53.83 Other fatigue; Z95.5 Presence of coronary angioplasty implant and graft; Z20.822 Contact with and (suspected) exposure to COVID-19
CPT/HCPCS: 0241U-QW; 36415; 71045-TC-FY; 71250-TC; 80053; 82803; 83880; 84439; 84443; 84484; 85025; 85610; 85730; 93005; 93010; 99285-25

== ENCOUNTER 2024-04-13 22:53 | Observation (INO) | payer OTHER ==
[2024-04-13 23:06] VITALS: BMI 21.0
[2024-04-14] MEDS ORDERED: ASPIRIN 81 MG CHEWABLE TABLETS ONE (02:23)
[2024-04-14] MEDS: ASPIRIN 81 MG CHEWABLE TABLETS PO ONE (02:26)
[2024-04-14 07:43] LABS: HEMATOCRIT 38.7 % (32.4-45.2); HEMOGLOBIN 12.8 GM/dL (10.7-15.3); MCH 31.9 pg (25.7-33.7); MCHC 33.1 g/dl (32.0-36.0); MEAN CELL VOLUME 96.5 fl (80-96); MEAN PLT VOLUME 7.6 fl (7.5-11.1); PLATELET COUNT 334 10^3/uL (134-434); RBC 4.01 M/mm3 (3.60-5.2); RDW 14.1 % (11.6-15.6); WHITE BLOOD COUNT 10.2 K/mm3 (4.0-10.0)
[2024-04-14 08:02] LABS: POTASSIUM 3.4 mmol/L (3.5-5.1)
[2024-04-14 08:12] LABS: BLOOD UREA NITROGEN 15.5 mg/dL (7-18); CALCIUM 8.7 mg/dL (8.5-10.1); MAGNESIUM 1.9 mg/dL (1.8-2.4)
[2024-04-14 08:14] LABS: CREATININE 0.9 mg/dL (0.55-1.3)
[2024-04-14 08:15] LABS: PHOSPHOROUS 3.1 mg/dL (2.5-4.9)
[2024-04-14 08:16] LABS: BILIRUBIN,TOTAL 0.3 mg/dL (0.2-1)
[2024-04-14 08:17] LABS: TOT PROT 5.7 g/dl (6.4-8.2)
[2024-04-14] MEDS: amLODIPine BESYLATE 10 MG TABLET (FP) PO SCH (10:24)
[2024-04-14] MEDS: LISINOPRIL 20 MG TABLET PO SCH (10:24)
[2024-04-14] MEDS: ASPIRIN COATED 81 MG TABLET.EC PO SCH (10:24)
[2024-04-14] MEDS: CHOLECALCIFEROL (VIT D3) 1,000 UNIT (25 MCG) TABLET PO SCH (10:24)
[2024-04-14] MEDS: CLOPIDOGREL BISULFATE 75 MG TABLET (FP) PO SCH (10:24)
[2024-04-14] MEDS: ENOXAPARIN NA (PORCINE) 40 MG/0.4 ML DISP.SYRIN SQ SCH (10:25)
[2024-04-14] MEDS: FAMOTIDINE 20 MG TABLET PO SCH (10:25)
[2024-04-14 10:27] VITALS: BP 161/80; PULSE 78; RESP 18; TEMP 98.3
[2024-04-14] MEDS: POTASSIUM CHLORIDE ORAL LIQUID 20 MEQ/15 ML PO ONE (12:05)
[2024-04-14] MEDS ORDERED: ATORVASTATIN CA 40 MG TABLET (FP) PO SCH (22:00)
== END 2024-04-14 14:17 | disposition home or self-care (01) ==
LOC: JER 22:53 → UNDOADMOB 23:56 → JERBED 23:56 → OBSVTOIN 04-14 02:21 → INTOOBSV 04-14 02:21 → J4W 04-14 04:02 → JERBED 04-14 04:02 → J4W 04-14 04:46 → JERBED 04-14 09:21 → J4W 04-14 09:21
PROVIDERS: ADMIT Internal Medicine; ATTEND Internal Medicine
PROC: 3E023GC Introduction of Other Therapeutic Substance into Muscle, Percutaneous Approach (ICD-10-PCS; principal; 2024-04-14)
DX: I25.10 Atherosclerotic heart disease of native coronary artery without angina pectoris (principal); J44.9 Chronic obstructive pulmonary disease, unspecified; R79.89 Other specified abnormal findings of blood chemistry; I11.0 Hypertensive heart disease with heart failure; E78.5 Hyperlipidemia, unspecified; R06.09 Other forms of dyspnea; K21.9 Gastro-esophageal reflux disease without esophagitis; Z29.89 Encounter for other specified prophylactic measures; Z88.0 Allergy status to penicillin; Z88.8 Allergy status to other drugs, medicaments and biological substances; Z91.041 Radiographic dye allergy status
CPT/HCPCS: 36415; 80053; 83735; 84100; 84484; 85027; 93005; 93010; 93306-TC; 93970-TC; 96372; 99285-25; G0378

== ENCOUNTER 2024-06-28 21:00 | Emergency (ER) | payer OTHER ==
[2024-06-28 21:06] VITALS: BP 205/85; PULSE 91; RESP 18; TEMP 98.1; BMI 20.5
[2024-06-28] MEDS ORDERED: LIDOCAINE 4% PATCH TP ONE (21:44)
[2024-06-28] MEDS ORDERED: ACETAMINOPHEN 500 MG TABLET (FP) ONE (22:00)
[2024-06-28] MEDS: LIDOCAINE PATCH REMOVAL MC SCH (22:15)
[2024-06-28] MEDS: ACETAMINOPHEN 500 MG TABLET (FP) PO ONE (22:15)
[2024-06-28] MEDS: LIDOCAINE 4% PATCH TP ONE (22:15)
[2024-06-28 22:18] LABS: BASO % 0.9 % (0-2.0); EOS % 1.9 % (0-4.5); HEMATOCRIT 42.2 % (32.4-45.2); LYMPH % 12.5 % (8-40); MCHC 33.1 g/dl (32.0-36.0); MEAN CELL VOLUME 96.8 fl (80-96); MEAN PLT VOLUME 7.5 fl (7.5-11.1); MONO % 9.4 % (3.8-10.2); NEUT % 75.3 % (42.8-82.8); PLATELET COUNT 313 10^3/uL (134-434); RBC 4.36 M/mm3 (3.60-5.2); RDW 13.3 % (11.6-15.6); WHITE BLOOD COUNT 12.7 K/mm3 (4.0-10.0)
[2024-06-28 22:33] LABS: POTASSIUM 3.6 mmol/L (3.5-5.1)
[2024-06-28 22:34] LABS: CALCIUM 9.1 mg/dL (8.5-10.1)
[2024-06-28 22:35] LABS: BLOOD UREA NITROGEN 18.4 mg/dL (7-18)
[2024-06-28 22:38] LABS: CREATININE 0.7 mg/dL (0.55-1.3)
[2024-06-28 22:51] LABS: EPI CELLS 3 /uL (0-25.1); HYALINE CASTS 0 /uL (0-3.1); PH,URINE 5.5 (5.0-8.0); URINE APPEARANCE CLEAR; URINE BACTERIA 1 /uL (0-1359); URINE BILIRUBIN NEGATIVE (NEGATIVE); URINE COLOR YELLOW; URINE GLUCOSE (UA) NEGATIVE (NEGATIVE); URINE KETONE NEGATIVE (NEGATIVE); URINE LEUK ESTERASE NEGATIVE (NEGATIVE); URINE NITRITE NEGATIVE (NEGATIVE); URINE PROTEIN 1+ (NEGATIVE); URINE RBC 184 /uL (0-23.9); URINE UROBILINOGEN 0.2 mg/dL (0.2-1.0); URINE WBC 15 /uL (0-25.8)
== END 2024-06-29 00:01 | disposition home or self-care (01) ==
LOC: JER 21:00
DX: R07.81 Pleurodynia (principal); R50.9 Fever, unspecified
CPT/HCPCS: 36415; 71046-TC-FY; 80048; 81003; 84484; 85025; 87086; 93005; 93010; 99285-25